=== PATIENT | male | born 1970 | race African-American/Black ===

== ENCOUNTER 2016-07-05 14:00 | Emergency (ER) | payer OTHER ==
[~2016-07-05] VITALS: Ht 182.9 cm; Wt 88.5 kg
[~2016-07-05 14:00] MED LIST: ENALAPRIL MALEA20 M1 PO; NOVOLIN 701000 UNITS SC; PERCOCET 325 MG1 TA2 PO; PERCOCET 5-3251 EACH PO; TRAMADOL HCL50 M1 PO; XANAX2 MG PO
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
[2016-07-05] MEDS ORDERED: PERCOCET 5-3251 EACH PO (15:08)
[2016-07-05 15:28] VITALS: BP 140/80
== END 2016-07-05 15:28 ==
LOC: ERH 14:00
DX: S09.90XA Unspecified injury of head, initial encounter (principal); S00.83XA Contusion of other part of head, initial encounter; Y04.8XXA Assault by other bodily force, initial encounter